=== PATIENT | female | born 1980 | race Caucasian/White ===

== ENCOUNTER 2023-06-18 14:32 | Emergency (ER) | payer OTHER ==
[~2023-06-18] VITALS: Ht 157.5 cm; Wt 76.8 kg
[2023-06-18 15:21] VITALS: BP 125/80
[2023-06-18 16:08] VITALS: PULSE 100; RESP 16; O2SAT 96
[2023-06-18 16:23] VITALS: TEMP 99.2
[2023-06-18] MEDS: ACETAMINOPHEN 500 MG TAB PO ONE (16:23)
[2023-06-18] MEDS: cefTRIAXone SOD 1,000 MG VL IM ONE (16:23)
[2023-06-18] MEDS ORDERED: IBUP-1454 PO (16:31)
[2023-06-18] MEDS ORDERED: PROM1SOL4 PO (16:31)
[2023-06-18] MEDS ORDERED: AZIT-81 PO (16:31)
== END 2023-06-18 16:42 | disposition home or self-care (01) ==
LOC: ER 14:32
DX: J02.9 Acute pharyngitis, unspecified (principal); J06.9 Acute upper respiratory infection, unspecified
CPT/HCPCS: 71045; 96372; 99283; J0696